=== PATIENT | male | born 1950 | race Caucasian/White ===

== ENCOUNTER → 2017-10-15 13:38 | Outpatient (CLI) | payer MEDICARE, OTHER, SELFPAY ==
--- NOTE | 2017-10-15 13:41 | MR_ITS ---
MR shoulder RT wo con Ordering Physician: Shaun Worrell MD Patient Age: 67 years: Male HISTORY: ITS.REASON: ACUTE PAIN OF RIGHT SHOULDER Right shoulder pain for 2 months limited range of motion no known injury. Pain extends the elbow. TECHNIQUE: Multiplanar multisequence imaging on 1.5 T MR COMPARISON :No previous studies for comparison FINDINGS No full-thickness rotator cuff tear or retraction. Infraspinatus tendon.: Increased undersurface and intrasubstance signal most evident here suggesting a tendinopathy and possibly undersurface partial tear it is just beneath this area there is a cystic area at these superior base of humeral head, measuring nearly 5 mm. Subchondral cyst from degenerative changes and possible insertional erosion related Supraspinatus tendon.: Some minor undersurface signal most likely reflecting tendinopathy. Less likely partial tear.. Subscapularis tendon: I believe intact. Upper normal signal at its superior aspect reflect minor tendinopathy but unimpressive. .. Biceps tendon remains intact. Slight downward sloping of the acromion on the coronal projection with slight narrowing subacromial space just less than 7 mm.: . Mild AC joint hypertrophy and arthropathy. Slight increased fluid AC joint Anterior labrum appears intact. The posterior labrum less well-defined with likely degeneration. Difficult to exclude a hair at its base but more likely degenerative change. Is also a subchondral cystic feature along the posterior margin of the osseous glenoid reflecting degenerative changes here also question some mild capsular thickening inferiorly at shoulder joint. Small joint effusion with fluid extending to the subcoracoid bursa. ...... IMPRESSION............................. 1. No full-thickness rotator cuff tear. Infraspinatus tendon with increased undersurface and interstitial signal-likely reflecting tendinopathy and possible undersurface partial tear. Only question minor undersurface tendinopathy at the supraspinatus tendon. 2. Likely developing degenerative changes posterior glenohumeral joint small subchondral cystic changes here. 3. Slight irregular appearance of posterior labrum likely reflecting degeneration. Difficult to exclude minor posterior labral tear . The anterior glenoid and anterior glenoid labrum appears intact 4. Small joint effusion. 5. Mild AC joint arthropathy, hypertrophy
== END ==
PROVIDERS: Family Provider Family Medicine; PCP Family Medicine; Visit Provider Family Medicine
DX: M25.511 Pain in right shoulder (principal)
CPT/HCPCS: 73221

== ENCOUNTER 2018-10-13 09:12 | Emergency (ER) | payer MEDICARE, OTHER, SELFPAY ==
[2018-10-13 09:29] VITALS: BP 141/81; PULSE 74; RESP 18; TEMP 37.3; O2SAT 96; BMI 35.6
--- NOTE | 2018-10-13 09:30 | PC.NURSE ---
0930: PT SWABBED FOR THE FLU
[2018-10-13 09:44] LABS: UTC Influenza A Antigen Negative (Negative); UTC Influenza B Antigen Negative (Negative)
--- NOTE | 2018-10-13 09:50 | HMH.EDUTC ---
[facility] [place] Disposition Clinical Impression: Bronchitis Sinusitis Qualifiers: Sinusitis location: unspecified location Chronicity: acute Recurrence: non-recurrent Qualified Code(s): J01.90 - Acute sinusitis, unspecified Disposition: Home, Self-Care Condition on Discharge: Good Instructions: Sinusitis, Acute Bronchitis, Cough, DI for Sinusitis Additional Instructions: Drink plenty of fluids. Take tylenol or ibuprofen for the pain or fever. Take all the antibiotics and steroids as prescribed. Go ahead and start the antibiotics this afternoon, even though we gave you a shot here. Start the steroids this morning once you get them from the pharmacy. The cough syrup (promethazine-dm) will make you drowsy, so don't be driving or operating heavy machinery after taking it. Go to your regular doctor or return if you are not getting better in 48 hours or so. GO TO THE ER FOR ANY WORSENING OR LIFE THREATENING SYMPTOMS (DIFFICULTY BREATHING, ETC). Prescriptions: Promethazine/Dextromethorphan [Promethazine-Dm Syrup] 5 ml PO Q6HP PRN #240 syrup PRN Reason: Cough Albuterol Sulfate [Albuterol HFA Inhaler] 1 - 2 puffs IH Q4-6H PRN #1 inh PRN Reason: Shortness Of Breath Or Wheezing Azithromycin [Z-Nick 250mg Tab] 250 mg PO UD DOSE PK #6 tab methylPREDNISolone [Medrol] 4 mg PO DIRECTED 6 Days #21 tab.ds.pk Referrals: Shaun Worrell MD [Primary Care Provider] - Time of Disposition: 10:05 Medical Decision Making - Medical Records Medical records reviewed: No: I reviewed the patient's medical records. - Rick Inquiry Pt receiving controlled substance: No Rick was queried for this patient: No Vital Signs: 10/13/18 09:29 10/13/18 10:10 Temperature 99.1 F 99.0 F Temperature Source Oral Oral Pulse Rate 72 Pulse Rate [Right Radial] 74 Respiratory Rate 18 18 Blood Pressure 136/78 Blood Pressure [Right Arm] 141/81 H Blood Pressure Mean [Right Arm] 101 Blood Pressure Source Automatic Cuff Blood Pressure Position Sitting 02 Sat by Pulse Oximetry 96 Oxygen Delivery Method Room Air Room Air - Lab Data Lab results reviewed: Yes: I reviewed the patient's lab results. Lab Results 10/13/18 09:24: Influenza Type A Ag Negative, Influenza Type B Ag Negative Orders (Tests/Meds): ED MEDICATIONS Discontinued Medications Generic Name Dose Route Start Last Admin Trade Name Danny PRN Reason Stop Dose Admin Ceftriaxone Sodium 1 gm 10/13/18 09:59 10/13/18 10:16 Rocephin 1gm Vial IM 10/13/18 10:00 1 gm ONCE ONE Administration Protocol Lidocaine HCl 0 ml 10/13/18 09:59 10/13/18 10:05 Lidocaine 1% 10ml Mdv IM 10/13/18 10:00 1 ml ONCE ONE Administration [facility] [place] HPI - General Stated complaint: cough, fever Time Seen by Provider: 10/13/18 09:50 Mode of Arrival: Family Vehicle Source of Information: Patient Limitations: No Limitations Description of Symptoms (Recalled from Triage Doc. by RN): pt c/o continuous coughing for several days with low grade fever and some chills. pt states coughing is worse at bedtime. HEENT Symptoms (Recalled from RN notes): No Resp Symptoms (Recalled from RN notes): Yes (coughing,fever, chills) Skin Symptoms (Recalled from RN notes): No MS Symptoms (Recalled from RN notes): No Functional Status (Recalled from RN notes): na - History of Present Illness Provider Complaint: He states that for the past 3 days he has had a low grade fever (up to 100.5) at night, with chilling at night. He has also been coughing frequently. He states he does not feel congested in his chest and his cough in nonproductive. He is also having some sinus drainage and sinus congestion. He does not smoke. - Related Data Previous Rx's Medication Instructions Recorded Albuterol Sulfate [Albuterol HFA 1 - 2 puffs IH Q4-6H PRN #1 inh 10/13/18 Inhaler] Azithromycin [Z-Nick 250mg Tab] 250 mg PO UD DOSE PK #6 tab 0
--- NOTE | 2018-10-13 09:55 | ED_ITS ---
[facility] [place] Disposition Clinical Impression: Bronchitis Sinusitis Qualifiers: Sinusitis location: unspecified location Chronicity: acute Recurrence: non- recurrent Qualified Code(s): J01.90 - Acute sinusitis, unspecified Disposition: Home, Self-Care Condition on Discharge: Good Instructions: Sinusitis, Acute Bronchitis, Cough, DI for Sinusitis Additional Instructions: Drink plenty of fluids. Take tylenol or ibuprofen for the pain or fever. Take all the antibiotics and steroids as prescribed. Go ahead and start the antibiotics this afternoon, even though we gave you a shot here. Start the steroids this morning once you get them from the pharmacy. The cough syrup (promethazine-dm) will make you drowsy, so don't be driving or operating heavy machinery after taking it. Go to your regular doctor or return if you are not getting better in 48 hours or so. GO TO THE ER FOR ANY WORSENING OR LIFE THREATENING SYMPTOMS (DIFFICULTY BREATHING, ETC). Prescriptions: Promethazine/Dextromethorphan [Promethazine-Dm Syrup] 5 ml PO Q6HP PRN #240 syrup PRN Reason: Cough Albuterol Sulfate [Albuterol HFA Inhaler] 1 - 2 puffs IH Q4-6H PRN #1 inh PRN Reason: Shortness Of Breath Or Wheezing Azithromycin [Z-Nick 250mg Tab] 250 mg PO UD DOSE PK #6 tab methylPREDNISolone [Medrol] 4 mg PO DIRECTED 6 Days #21 tab.ds.pk Referrals: Shaun Worrell MD [Primary Care Provider] - Time of Disposition: 10:05 Medical Decision Making - Medical Records Medical records reviewed: No: I reviewed the patient's medical records. - Rick Inquiry Pt receiving controlled substance: No Rick was queried for this patient: No Vital Signs: 10/13/18 09:29 10/13/18 10:10 Temperature 99.1 F 99.0 F Temperature Source Oral Oral Pulse Rate 72 Pulse Rate [Right Radial] 74 Respiratory Rate 18 18 Blood Pressure 136/78 Blood Pressure [Right Arm] 141/81 H Blood Pressure Mean [Right Arm] 101 Blood Pressure Source Automatic Cuff Blood Pressure Position Sitting 02 Sat by Pulse Oximetry 96 Oxygen Delivery Method Room Air Room Air - Lab Data Lab results reviewed: Yes: I reviewed the patient's lab results. Lab Results 10/13/18 09:24: Influenza Type A Ag Negative, Influenza Type B Ag Negative Orders (Tests/Meds): ED MEDICATIONS Discontinued Medications Generic Name Dose Route Start Last Admin Trade Name Danny PRN Reason Stop Dose Admin Ceftriaxone Sodium 1 gm 10/13/18 09:59 10/13/18 10:16 Rocephin 1gm Vial IM 10/13/18 10:00 1 gm ONCE ONE Administration Protocol Lidocaine HCl 0 ml 10/13/18 09:59 10/13/18 10:05 Lidocaine 1% 10ml Mdv IM 10/13/18 10:00 1 ml ONCE ONE Administration [facility] [place] HPI - General Stated complaint: cough, fever Time Seen by Provider: 10/13/18 09:50 Mode of Arrival: Family Vehicle Source of Information: Patient Limitations: No Limitations Description of Symptoms (Recalled from Triage Doc. by RN): pt c/o continuous coughing for several days with low grade fever and some chills. pt states coughing is worse at bedtime. HEENT Symptoms (Recalled from RN notes): No
[2018-10-13 10:10] VITALS: BP 136/78; PULSE 72; RESP 18; TEMP 37.2; O2SAT 98
== END 2018-10-13 10:15 | disposition home or self-care (01) ==
PROVIDERS: Emergency Provider Nurse Practitioner Family; PCP Family Medicine
DX: J20.9 Acute bronchitis, unspecified (principal); J01.90 Acute sinusitis, unspecified
CPT/HCPCS: G0463; 87804; 96372; 99202

== ENCOUNTER → 2018-10-18 12:27 | Outpatient (CLI) | payer MEDICARE, OTHER, SELFPAY ==
[2018-10-18 12:43] LABS: Basophils % 0.4 % (0.1-2.0); Eosinophils # 0.2 K/mm3 (0.0-0.4); Eosinophils % 1.5 % (0.1-12.0); Hematocrit 49.8 % (42.0-52.0); Hemoglobin 16.1 g/dL (14.1-18.0); Lymphocytes # 1.7 K/mm3 (0.7-4.5); Mean Corpuscular HGB Conc 32.4 g/dL (31.8-35.4); Mean Corpuscular Volume 89.5 fl (80-94); Mean Platelet Volume 7.3 fl (7.4-10.4); Monocytes # 0.6 K/mm3 (0.1-1.0); Monocytes % 6.2 % (1.7-9.3); Neutrophils # 7.7 K/mm3 (1.8-7.8); Neutrophils % 74.8 % (37.0-80.0); Platelet Count 361 K/mm3 (142-424); Red Blood Count 5.56 M/mm3 (4.60-6.20); Red Cell Distribution Width 13.6 % (11.5-17.5); White Blood Count 10.2 K/mm3 (4.8-10.8)
== END ==
PROVIDERS: PCP Family Medicine; Visit Provider Physician Assistant
DX: J06.9 Acute upper respiratory infection, unspecified (principal)
CPT/HCPCS: 85025

== ENCOUNTER → 2019-08-26 09:54 | Outpatient (POV) | payer MEDICARE, OTHER, SELFPAY | PROVIDERS: Visit Provider Dermatology | DX: Z00.00 Encounter for general adult medical examination without abnormal findings (principal) ==

== ENCOUNTER → 2019-10-27 16:09 | Outpatient (CLI) | payer MEDICARE, OTHER, SELFPAY ==
--- NOTE | 2019-10-27 | XR_ITS ---
PROCEDURE: XR KNEE RT 3V CLINICAL INDICATION: COMPARISON: No exams were available for comparison FINDINGS: No fracture or dislocation. No lytic or blastic change. There is normal mineralization. There is slight decrease in joint space medially consistent mild osteoarthritic change. Other findings:None. IMPRESSION: Mild osteoarthritic change Dictated by: Kings Neil MD 10/27/2019 17:26 Electronically signed by Kings Neil MD in [place] 10/27/2019 17:26
== END ==
PROVIDERS: PCP Family Medicine; Visit Provider Family Medicine
DX: M25.561 Pain in right knee (principal)
CPT/HCPCS: 73562

== ENCOUNTER → 2019-11-03 13:22 | Outpatient (CLI) | payer MEDICARE, OTHER, SELFPAY ==
--- NOTE | 2019-11-03 13:25 | MR_ITS ---
PROCEDURE: MR KNEE RT WO CON CLINICAL INDICATION: ACUTE PAIN OF RIGHT KNEE Acute pain of right knee with instability COMPARISON: XR KNEE RT 3V from 10/27/2019 TECHNIQUE: Routine multiplanar multi echo sequences are performed without gadolinium enhancement. FINDINGS: The cruciate ligaments and collateral ligaments have an unremarkable appearance. The patellar tendon and quadriceps tendon are unremarkable. There is some mild thinning of the patellar cartilage with slight increased T2 signal in the posterior sub cortical region of the patella suggesting chondromalacia patella with some minimal bony spurring of the patella. There is abnormal shape of the central aspect of the posterior horn of the medial meniscus with what appears represent a flipped meniscus with a flipped portion of the meniscus lying centrally just medial to the insertion of the posterior cruciate ligament best detected on the coronal STIR images. A bucket-handle tear is suspected. There is a small knee joint effusion. IMPRESSION: 1. Suspect bucket-handle tear of the posterior horn of the medial meniscus with flipped meniscus 2. 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
== END ==
PROVIDERS: PCP Family Medicine; Visit Provider Family Medicine
DX: M25.561 Pain in right knee (principal)
CPT/HCPCS: 73721

== ENCOUNTER → 2019-11-14 10:07 | Outpatient (CLI) | payer MEDICARE, OTHER, SELFPAY ==
--- NOTE | 2019-11-14 10:13 | XR_ITS ---
PROCEDURE: XR KNEE RT 4V CLINICAL INDICATION: right knee pain COMPARISON: XR KNEE RT 3V from 10/27/2019 FINDINGS: No fracture or dislocation. No lytic or blastic change. There is normal mineralization. There is slight decrease in the knee joint space medially and there is minimal osteophyte formation at the patellofemoral joint. Other findings:None. IMPRESSION: Minimal osteoarthritic change, no acute finding Dictated by: Kings Neil MD 11/14/2019 13:41 Electronically signed by Kings Neil MD in [place] 11/14/2019 13:41
== END ==
PROVIDERS: PCP Family Medicine; Visit Provider Orthopaedic Surgery
DX: M25.561 Pain in right knee (principal)
CPT/HCPCS: 73564

== ENCOUNTER → 2020-06-21 12:19 | Outpatient (CLI) | payer MEDICARE, OTHER, SELFPAY | PROVIDERS: PCP Family Medicine; Visit Provider Nurse Practitioner Family | DX: Z03.818 Encounter for observation for suspected exposure to other biological agents ruled out (principal) | CPT/HCPCS: U0003 ==

== ENCOUNTER → 2020-09-10 08:34 | Outpatient (CLI) | payer MEDICARE, OTHER, SELFPAY ==
[2020-09-10 10:08] LABS: Alanine Aminotransferase 15 U/L (12-78); Albumin Level 4.6 g/dl (3.5-5.0); Albumin/Globulin Ratio 1.6 (1.1-1.8); Alkaline Phosphatase 70 U/L (38-126); Anion Gap 12.2 mEq/L (5-15); Aspartate Amino Transferase 26 U/L (17-59); Bilirubin,Total 1.6 mg/dl (0.2-1.3); Blood Urea Nitrogen 19 mg/dl (9-20); Carbon Dioxide 33 mmol/L (22.0-30.0); Chloride 98 mmol/L (98-107); Chol/HDL Ratio 5.5 (1-3.5); Cholesterol 182 mg/dl (140-200); Estimated Glomerular Filt Rate 66 ml/min (>60); GFR (African American) 80 ML/MIN (>60); Globulin 2.8 g/dL (1.3-3.2); Glucose 104 mg/dl (74-100); HDL Cholesterol 33 mg/dl (40-60); Potassium 5.2 mmoL/L (3.5-5.1); Sodium 138 mmol/L (136-145); Total Protein,Serum 7.4 g/dl (6.3-8.2); Triglycerides 142 mg/dl (30-150); VLDL Cholesterol 28 mg/dL (0-40)
[2020-09-10 10:18] LABS: Direct LDL Cholesterol 125.73 mg/dL (100-129)
[2020-09-10 10:39] LABS: Prostate Specific Ag Screen 2.2 ng/ml (0.0-4.0)
== END ==
PROVIDERS: Visit Provider Family Medicine
DX: Z00.00 Encounter for general adult medical examination without abnormal findings (principal); I10 Essential (primary) hypertension; Z12.5 Encounter for screening for malignant neoplasm of prostate
CPT/HCPCS: 36415; 80053; 80061; G0103

== ENCOUNTER → 2020-12-08 08:55 | Outpatient (CLI) | payer MEDICARE, OTHER, SELFPAY ==
[2020-12-08 10:35] LABS: Coronavirus 19 IgG Antibody Positive (Negative); Coronavirus 19 IgM Antibody Negative (Negative)
== END ==
PROVIDERS: Visit Provider Internal Medicine Gastroenterology
DX: Z01.812 Encounter for preprocedural laboratory examination (principal); Z20.822 Contact with and (suspected) exposure to COVID-19; Z12.11 Encounter for screening for malignant neoplasm of colon
CPT/HCPCS: 36415; 86328

== ENCOUNTER 2020-12-10 07:04 | Day surgery (SDC) | payer MEDICARE, OTHER, SELFPAY ==
[2020-12-02 11:58] VITALS: BMI 33.3
[2020-12-10 07:24] VITALS: BP 146/77; PULSE 58; RESP 20; TEMP 36.2; O2SAT 100
--- NOTE | 2020-12-10 08:01 | P.PCN_ITS ---
[facility] Procedure Note Procedure Note:: Colonoscopy Procedure Report: Colonoscopy with cold snare polypectomy Endoscopist: Agus Levi II, MD Referring physician: Brendon Worrell MD Date of Procedure: December 10, 2020 Equipment: Olympus 190 variable stiffness pediatric colonoscope Sedation: MAC sedation Indication: Mr. Singleton is a 70-year-old gentleman who is here for follow-up surveillance/screening colonoscopy secondary to a personal history of adenomatous colon polyps. He did have a colonoscopy in May 2017 and had 8 colon polyps removed (tubular adenomas x8). His maternal aunt had colon cancer at the age of 62. He does get some bowel urgency and frequency in the mornings. He reports no rectal bleeding, abdominal pain, weight loss or change in bowel habits. Procedure: Prior to the procedure, a history and physical exam was performed, and patient's medications and allergies were reviewed. The risks, benefits and alternatives of the sedation and procedure were discussed with the patient. All questions were answered and informed consent was obtained. The patient was brought to the procedure room. Patient identification and proposed procedure were verified by the physician and the nurse. The patient was placed in a left lateral decubitus position and the scope was passed under direct vision. Throughout the pr ocedure, the patient's blood pressure, pulse, and oxygen saturations were monitored continuously. The colonoscopy was accomplished without difficulty. The patient tolerated the procedure well. Findings: On digital rectal examination there was normal rectal tone. There were no external hemorrhoids. The prostate was moderately firm and mildly asymmetric without nodules. The colonoscope was introduced through the anal canal to the rectum and advanced to the cecum. The ileocecal valve and appendiceal orifice were identified. The scope was advanced a short distance into the ileum which appeared grossly normal. The scope was then withdrawn into the colon. There were 5 diminutive colon polyps (cecum x3 (3, 3 and 4 mm) and descending x2 (3 and 4 mm)) which were all removed via cold snare polypectomy. The remaining ascending, transverse, descending, sigmoid and rectum were grossly normal. There were no mucosal abnormalities identified. Upon retroflexion within the rectum there were grade 1-2 internal hemorrhoids.The preparation was excellent throughout with [place] Preparation Score of 9. The cecal time was 12 minutes. Impression: 1. Diminutive colonic polyps x5 2. Grade 1-2 internal hemorrhoids 3. Firm prostate Plan: I will follow up the polyp pathology and recommend repeat colonoscopy again in 5 years based upon the polyp histology. I will inquire about PSA testing. I would encourage fiber supplementation on a long-term daily maintenance basis.
[2020-12-10 08:02] VITALS: O2SAT 97
[2020-12-10 08:29] VITALS: BP 122/73; PULSE 58; RESP 18; TEMP 36.5; O2SAT 95
[2020-12-10 08:39] VITALS: BP 139/84; PULSE 60; RESP 18; O2SAT 99
[2020-12-10 08:49] VITALS: BP 138/85; PULSE 54; RESP 18; O2SAT 98
[2020-12-10 09:19] VITALS: BP 137/61; PULSE 50; RESP 18; O2SAT 99
--- NOTE | 2020-12-10 09:19 | SUR.PHASEII ---
DIAGNOSTIC PSA ORDERED. ORDER PLCED AND LAB NOTIFIED. PT AWARE.
[2020-12-10 10:34] LABS: Prostate Specific Ag, Diagnost 3.04 ng/ml (0.0-4.0)
--- NOTE | 2020-12-10 14:54 | HMH.ANESCL ---
[facility] Anesthesia Checklist - Patient Identification Patient Identification: Arm Band - Structural Data Admitted From: Home Planned Operative Procedure/s: Colonoscopy Consent for Planned Operative Procedure(s) Verified: Yes Verified Documents: Surgical Consent, History and Physical - NPO Status Verified Time NPO: 00:00 - Airway Assessment C-Spine Mobility Assessed: Yes TMJ Mobility Assessed: Yes Dentition: Good Dentition - Neurological Assessment Level of Consciousness: Awake, Alert - Anesthesia Plan Anesthesia Plan: Verified Anesthesia Type: [facility] History Medical History: Reports:: Hypertension Denies:: Cancer, Diabetes Mellitus Type 1, Diabetes Mellitus Type 2, Internal Pacemaker, MRSA, Seizures *Have you ever received a pneumonia vaccine?: Yes *Have you received a flu vaccine this season?: No Anesthesia experience/problems:: None Laterality Cases: Bilateral: Tonsillectomy Other Surgeries: Yes: Colonoscopy. No: Pacemaker Amputation: No Fractures: No - *Social History Smoking Status: Never smoker Alcohol Intake: never Substance Use Type: denies use *Occupational Status:: retired Housing: house Household Members: spouse *Travel in the last 8 weeks: None Family Hx:: No significant family history
== END 2020-12-10 09:19 | disposition home or self-care (01) ==
LOC: OUTP 07:08
PROVIDERS: PCP Family Medicine; Visit Provider Internal Medicine Gastroenterology
PROC: 0DJD8ZZ Inspection of Lower Intestinal Tract, Via Natural or Artificial Opening Endoscopic (ICD-10-PCS; CPT 45378; principal; 2020-12-10 08:00)
DX: Z12.11 Encounter for screening for malignant neoplasm of colon (principal); Z86.010 Personal history of colon polyps; K63.5 Polyp of colon; K64.0 First degree hemorrhoids; I10 Essential (primary) hypertension; Z79.899 Other long term (current) drug therapy
CPT/HCPCS: 45385; 84153; 88305

== ENCOUNTER → 2022-05-18 06:44 | Outpatient (CLI) | payer MEDICARE, OTHER, SELFPAY ==
--- NOTE | 2022-05-18 | CA_ITS ---
APPROVED REPORT Exam: Exercise Treadmill Technologist: Sarah Bell, Ht: 6 ft 1 in Wt: 270 lbs BSA: 2.44 m2 HR: 61 bpm BP: 163/83 mmHg Rhythm: sinus abbey, NS IVCD, poor R wave progression Indications: Fatigue Medical History Medical History: HTN Medications: Lisinopril,,,,, Esomeprazole,,,,, TriaMt/HCTZ,,,,, Cardiac Risk Factors: HTN Stress Test Details Test: Kvng HR Resting HR: 59 bpm Max Heart Rate (APMHR): 147.505315 bpm Max HR Achieved: 151 bpm Target HR (85% APMHR): 124.251999 bpm % of APMHR: 102.72 Recovery HR: 120 bpm BP Resting BP: 166/76 mmHg Max BP: 212/84 mmHg Recovery BP: 178.0/77.0 mmHg ECG Resting ECG: sinus abbey, NS IVCD, poor R wave progression Clinical Exercise duration: 06:46 min Highest Stage Achieved: Exercise capacity: 7.0 METs Stress ECG Conclusion During kvng protocol exercised total of 6:46 into stage 3. No CP noted. Occasional PVC. Allowing for motion artifact, the ST response to exercise appears within normal. Normal GXT. Myoview images reported separately. Test Summary REST . . . . . . . Sitting REST . . . . . . . Sitting REST . . . . . . . Standing REST 08:01 0.0 0.0 59 . 166/ 76 . . Stage 1 01:00 10.0 1.7 96 . . . . Stage 1 02:00 10.0 1.7 104 . . . . Stage 1 03:00 10.0 1.7 110 . . . . Stage 2 01:00 12.0 2.5 120 . . . . Stage 2 02:00 12.0 2.5 129 . 212/ 84 . . Stage 2 03:00 12.0 2.5 145 . 212/ 84 . . Stage 3 00:46 14.0 3.4 143 . . . Stop exercise at 06:46 RECOVERY 01:00 0.0 0.0 120 . . . . RECOVERY 02:00 0.0 0.0 93 . . . . RECOVERY 03:00 0.0 0.0 83 . 178/ 77 . . RECOVERY 04:00 0.0 0.0 82 . 178/ 77 . . RECOVERY 05:00 0.0 0.0 77 . 180/ 72 . . RECOVERY 05:53 0.0 0.0 76 . 149/ 66 . . Electronically signed by : Tobias Whalen MD 05/19/2022 09:31:04
--- NOTE | 2022-05-18 06:49 | NM_ITS ---
APPROVED REPORT Exam: Nuclear Stress Test Indication: fatigue Patient Location: Outpatient Stress Tech: Sarah Bell OR Tech:Marlena REMY Bingham RT(R)(N) Ht: 6 ft 1 in Wt: 270 lbs HR: 59 bpm BP: 166/76 mmHg BSA: 2.44 m2 TID: 1.01 BMI: 35.6 History: fatigue Procedure: Patient exercised on Kvng protocol 6:46 minutes and sec, resting heart rate 59 bpm, resting blood pressure 166/76 mmHg, with exercise maximum heart rate achived was 151 bpm which is 103 % of the maximum predicted heart rate and blood pressure was 212/84 mmHg. Patient denied any complaint of chest pain. Patient has Adequate exercise capacity, achieved 7.0 METs of workload on treadmill, the blood pressure response to exercise was Hypertensive. Electrocardiogram Resting electrocardiogram showed sinus rhythm, with exercise there is less than 1.[address] segment depression noted from the baseline EKG. The EKG portion of the exercise Myoview is negative for ischemia. Cardiac Stress and Resting SPECT Images: Cardiac Stress and Resting SPECT images were obtained using technetium 99m Myoview 31.5 mCi stress and 10.40 mCi at rest. Gated SPECT for analysis of segmental wall motion and calculation of the ejection fraction also done. Prone images were also obtained. Cardiac stress and rest SPECT images show uniform myocardial activity without segmental perfusion abnormality, computer derived ejection fraction is 48% with no regional wall motion abnormality, right ventricle is normal size and contractility. Conclusion: 1. The EKG portion of the exercise Myoview is negative for ischemia, patient has adequate exercise capacity achieved 7 METS of workload on treadmill, the blood pressure response to exercise was hypertensive, there was no exercise-induced chest discomfort. 2. No scintigraphic evidence of reversible ischemia seen, compared to ejection fraction is 48% with no regional wall motion abnormality, right ventricle is normal size and contractility. 3. Normal exercise Myoview study. Electronically signed by : Tobias Whalen MD 05/19/2022 09:34:01
== END ==
PROVIDERS: PCP Family Medicine; Visit Provider Family Medicine
DX: R07.9 Chest pain, unspecified (principal)
CPT/HCPCS: 78452; 93017; A9502

== ENCOUNTER 2022-12-24 09:11 | Emergency (ER) | payer MEDICARE, OTHER, SELFPAY ==
[2022-12-24 09:12] VITALS: BP 159/69; PULSE 57; RESP 18; TEMP 36.7; O2SAT 98; BMI 34.3
--- NOTE | 2022-12-24 09:15 | XR_ITS ---
PROCEDURE INFORMATION: Exam: XR Left Ribs with PA Chest Exam date and time: 12/24/2022 9:16 AM Age: 72 years old Clinical indication: Other: Left side rib pain; Patient HX: Fall, left upper rib pain TECHNIQUE: Imaging protocol: Radiologic exam of the left ribs with PA chest. Views: 3 views COMPARISON: No relevant prior studies available. FINDINGS: Lungs: Unremarkable. No consolidation. Pleural spaces: Unremarkable. No pleural effusion. No pneumothorax. Heart/Mediastinum: Unremarkable. No cardiomegaly. Bones/joints: Unremarkable. IMPRESSION: No acute findings.
--- NOTE | 2022-12-24 09:53 | EXP.UTC ---
Discharge Plan Disposition Patient Disposition: Home, Self-Care Condition: Good Prescriptions Prescriptions: No Action lisinopril 10 mg tablet 10 mg PO DAILY triamterene 50 mg capsule 50 mg PO DAILY Referrals Follow up/Referrals: Shaun Worrell MD [Primary Care Provider] - See instructions Activity Restrictions/Add. Instructions Additional Instructions/Restrictions: *Ibuprofen/Tylenol as directed on package to help with pain with meal as needed for pain/inflammation *Ice 20 minutes every 2 hours for the first 48 hours after the initial injury followed by moist heat every 20 minutes 3-4 times a day to affected area Follow up immediately for any worsening of pain *Keep this area active, no movement leads to more stiffness, However take it easy and avoid heavy lifting pushing or pulling *Follow up with you family doctor if no improvement for further treatment Straight to ER if any life threatening symptoms Clinical Impressions Clinical Impression: Contusion of ribs Qualifiers: Encounter type: initial encounter Laterality: left Qualified Code(s): S20.212A - Contusion of left front wall of thorax, initial encounter Instructions Patient Instructions: Acetaminophen (Alternative Therapy), DI for Rib Contusion, Ibuprofen Discharge ED Provider: Soni Hunter [facility] [place] HPI General Stated complaint: Fall@home 12/24 Rib pain Mode of Arrival: Ambulatory Source of Information: Patient Limitations: No Limitations Time Seen by Provider: 12/24/22 09:53 Description of Symptoms (Recalled from Triage Doc. by RN): left ribs and side pain. He tripped and hit his chest was not able to catch him self at all. HEENT Symptoms (Recalled from RN notes): No Resp Symptoms (Recalled from RN notes): No Skin Symptoms (Recalled from RN notes): No MS Symptoms (Recalled from RN notes): Yes Functional Status (Recalled from RN notes): n/a History of Present Illness Provider Complaint: Patient states that [place] he [place] landed face down on the ground and wasnt able to catch himself but never hit his face but hit his chest/ribs against the ground States that ever since falling he has been having pain in his left ribs/chest area when he coughs or moves certain ways States that he is worried he may have broken some ribs States that he has pain with certain movements and cough Denies chest pain Denies SOA Denies neck or shoulder pain Denies any other injury states that he just hit his left ribs/chest on the ground States that feels better now than it did when he first fell Related Data Home Medications Medication Instructions Recorded Confirmed lisinopril 10 mg tablet 10 mg PO DAILY bp 11/14/19 12/24/22 triamterene 50 mg capsule 50 mg PO DAILY bp 11/14/19 12/24/22 Allergies Allergy/AdvReac Type Severity Reaction Status Date / Time No Known Allergies Allergy Verified 12/24/22 09:29 Worker's Comp Is this a Worker's Comp case?: No [facility] Disclaimer: The information contained in this section may have been updated after the patient was seen, as this information can be updated by other users. Medical History (Updated 12/24/22 @ 10:09 by Soni Hunter APRN) Hypertension Social History Smoking Status: Never smoker alcohol intake: never substance use type: denies use current occupational status: retired Travel in the last 8 weeks: None household members: spouse housing: house current occupational exposures/hazards: No caffeine: Yes ROS Obtained: Yes All systems reviewed & no additional complaints except as documented and Yes Systems reviewed as appropriate & no additional complaints except as documented Constitutional Constitutional: Reports system reviewed and no additional complaints, except as documented and Reports as per HPI Cardiovascular Cardiovascular: Reports system reviewed and no additional complaints, except as docu
[2022-12-24 10:19] VITALS: BP 159/69; PULSE 57; RESP 18; TEMP 36.7; O2SAT 98
== END 2022-12-24 10:18 | disposition home or self-care (01) ==
PROVIDERS: Emergency Provider Nurse Practitioner; PCP Family Medicine
DX: S20.212A Contusion of left front wall of thorax, initial encounter (principal); W01.10XA Fall on same level from slipping, tripping and stumbling with subsequent striking against unspecified object, initial encounter; I10 Essential (primary) hypertension
CPT/HCPCS: 71101; 99212; 99214; G0463